=== PATIENT | female | born 1990 ===

== ENCOUNTER 2017-01-20 21:49 | Inpatient (IN) | payer BC ==
[2017-01-20] MEDS: DEXTROSE 5%-LACTATED RINGERS 1,000 ML IV SCH (22:20)
[2017-01-20] MEDS ORDERED: CITRIC ACID/SODIUM CITRATE 30 ML UNIT-DOSE CUP PO ONE (22:40)
[2017-01-20 22:42] LABS: BASOPHIL 0.4 % (0-2.0); MCH 29.1 pg (25.7-33.7); MCHC 33.4 g/dl (32.0-36.0); MEAN CELL VOLUME 87.1 fl (80-96); MEAN PLT VOLUME 9.3 fl (7.5-11.1); NEUTROPHILS 66.3 % (42.8-82.8); PLATELET COUNT 264 K/MM3 (134-434); RDW 15.9 % (11.6-15.6)
[2017-01-20 22:53] LABS: INR 0.95 (0.82-1.09); PROTHROMBIN TIME (PATIENT) 10.4 SEC (9.98-11.88)
[2017-01-20 22:56] LABS: ACTIVATED PTT 27.9 SECONDS (26.9-34.4)
[2017-01-20 23:05] LABS: ANION GAP 11 (8-16); CALCIUM 8.9 mg/dL (8.5-10.1); CO2 21 mmol/L (21-32); CREATININE 0.7 mg/dL (0.55-1.02); GLUCOSE,RANDOM 104 mg/dL (74-106)
[2017-01-20] MEDS: OXYTOCIN 20 UNITS in 0.9% NS 1,000 ML IV SCH (23:06)
[2017-01-20 23:20] LABS: HIV 1 & 2 AB NEGATIVE; HIV 1 AGp24 NEGATIVE
[2017-01-20 23:36] LABS: ARTERIAL BLOOD GAS BASE EXCESS -6.8 meq/l (-2-2); ARTERIAL BLOOD GAS HCO3 19.8 meq/L (22-26); ARTERIAL BLOOD GAS pH 7.26 (7.35-7.45); LPM/O2% 21%; PT. ON O2? no; TYPE OF O2 ROOM AIR
[2017-01-20 23:37] LABS: ARTERIAL BLD GAS O2 SATURATION 50.5 % (90-98.9); ARTERIAL BLOOD GAS PO2 26.9 mmHg (80-100)
[2017-01-20] MEDS ORDERED: IBUPROFEN 800 MG/8 ML IJ IVPB PRN ×2 (23:40→23:53)
[2017-01-20] MEDS ORDERED: ONDANSETRON 4 MG/2 ML VIAL IVPUSH PRN (23:40)
[2017-01-20 23:41] LABS: ARTERIAL BLD GAS O2 SATURATION 77.9 % (90-98.9); ARTERIAL BLOOD GAS BASE EXCESS -7.1 meq/l (-2-2); ARTERIAL BLOOD GAS HCO3 18.8 meq/L (22-26); ARTERIAL BLOOD GAS pH 7.29 (7.35-7.45)
[2017-01-20 23:42] LABS: ARTERIAL BLOOD GAS PO2 41.7 mmHg (80-100); LPM/O2% 21%; PT. ON O2? NO; TYPE OF O2 ROOM AIR
[2017-01-20] MEDS ORDERED: BENZOCAINE 20% 57 GM BOTTLE TP PRN (23:53)
[2017-01-20] MEDS ORDERED: METHYLERGONOVINE MALEATE 0.2 MG/1 ML AMP IM PRN (23:53)
[2017-01-20] MEDS ORDERED: WITCH HAZEL 50% (TUCKS) 40 PAD/JAR PAD TP PRN (23:53)
[2017-01-20] MEDS ORDERED: BENZOCAINE 28 GM HEMORRHOIDAL OINTMENT PR PRN (23:53)
[2017-01-20] MEDS ORDERED: diphenhydrAMINE HCL 25 MG CAPSULE (FP) PO PRN (23:53)
--- NOTE | 2017-01-21 | HP ---
Past Medical History - Primary Care Physician PCP:: David Lombardo - Admission Chief Complaint: 39 weeks, non reassuring herat rate .for c/s History of Present Illness: 26 yo f 39 weeks, c/o contraction q 5 min , cx 1 cm 25 vx -3 mi, had 2 irais cardia, heart BTB variability avargae , advised c/s stat History Source: Patient Limitations to Obtaining History: No Limitations - Past Medical History ...: 1 ...Para: 0 ...Term: 0 - Past Surgical History Hx Myomectomy: No Hx Transabdominal Cerclage: No - Smoking History Have you smoked in the past 12 months: No - Alcohol/Substance Use Hx Alcohol Use: No - Social History Usual Living Arrangement: Yes: With Spouse History of Recent Travel: No Home Medications - Allergies Allergies/Adverse Reactions: Allergies Allergy/AdvReac Type Severity Reaction Status Date / Time No Known Allergies Allergy Verified 01/20/17 22:25 - Home Medications Home Medications: Ambulatory Orders Vit Calc,Iron,Folic [ Vitamins] 1 each PO DAILY 01/20/17 Review of Systems - Review of Systems Constitutional: reports: No Symptoms Eyes: reports: No Symptoms HENT: reports: No Symptoms Neck: reports: No Symptoms Cardiovascular: reports: No Symptoms Respiratory: reports: No Symptoms Gastrointestinal: reports: No Symptoms Genitourinary: reports: No Symptoms Breasts: reports: No Symptoms Reported Musculoskeletal: reports: No Symptoms Integumentary: reports: No Symptoms Endocrine: reports: No Symptoms Hematology/Lymphatic: reports: No Symptoms Psychiatric: reports: No Symptoms Physical Exam - Maternity Constitutional: Yes: Well Nourished, No Distress, Calm Eyes: Yes: WNL, Conjunctiva Clear, EOM Intact HENT: Yes: WNL, Atraumatic, Normocephalic Neck: Yes: WNL, Supple, Trachea Midline Cardiovascular: Yes: WNL, Regular Rate and Rhythm Breast(s): Yes: WNL - Abdominal Exam/OB Fundal Height: 38 Number of Fetuses: Single Presentation: Vertex Contractions: Yes Regularity: Irregular Intensity: Mild/Mod Monitor Mode: External Heart Rate Location: [facility] Category: II Accelerations: Non-Uniform Decelerations: Late - Vaginal Exam/OB Vaginal Bleediing: No Speculum Exam: No Dilatation (cm): 1 Effacement (%): 25 Amniotic Membrane Status: Intact Presentation: Vertex/Position Station: -3 - Physical Exam Edema: Yes Edema: LLE: Trace, RLE: Trace Deep Tendon Reflex Grade: Normal +2 ...Motor Strength: WNL Psychiatric: Yes: WNL - Labs Lab Results: CBC, BMP 01/20/17 22:15 01/20/17 22:15 Hemorrhage Risk Assessment - Risk Factors Medium Risk Factors: Yes: None High Risk Factors: Yes: None Risk Score: 1 Risk Level: Medium Risk Problem List - Problems (1) 39 weeks gestation of Code(s): Z3A.39 - 39 WEEKS GESTATION OF (2) Non-reassuring heart rate or rhythm affecting management of mother Code(s): O76 - ABNLT IN HEART RATE AND RHYTHM COMP LABOR AND DELIVERY Assessment/Plan admit for stat c/s, nursery. anestheia. notified
[2017-01-21 00:23] VITALS: BMI 41.1
[2017-01-21] MEDS: OXYTOCIN 20 UNITS in 0.9% NS 1,000 ML IV SCH (01:10)
[2017-01-21] MEDS: CEFAZOLIN 1 GM/D5W 50 ML IVPB SCH ×2 (01:45→11:45)
[2017-01-21] MEDS ORDERED: TUBERCULIN PPD 5 TU/0.1ML SYRINGE (IN PATIENT USE ONLY) ID ONE (07:00)
--- NOTE | 2017-01-21 07:35 | PN ---
Progress Note (short form) - Note Progress Note: pod 1 doing well, has pain and cramps. previous hx of depression, suicidal attempt CBC, BMP 01/20/17 22:15 01/20/17 22:15 Last Vital Signs Temp Pulse Resp BP Pulse Ox 99.0 F 78 20 129/76 100 01/21/17 06:36 01/21/17 06:36 01/21/17 06:36 01/21/17 06:36 01/20/17 23:50 abdomen soft, no distension, no cva incision dry, clean no excess vaginal bleeding no calf tenderness plan cbc. psych consult Problem List - Problems (1) 39 weeks gestation of Code(s): Z3A.39 - 39 WEEKS GESTATION OF (2) Non-reassuring heart rate or rhythm affecting management of mother Code(s): O76 - ABNLT IN HEART RATE AND RHYTHM COMP LABOR AND DELIVERY
[2017-01-21 08:10] LABS: BASOPHIL 0.2 % (0-2.0); EOSINOPHIL 0.7 % (0-4.5); MCH 28.4 pg (25.7-33.7); MCHC 32.5 g/dl (32.0-36.0); MEAN CELL VOLUME 87.3 fl (80-96); MEAN PLT VOLUME 9.2 fl (7.5-11.1); NEUTROPHILS 68.9 % (42.8-82.8); PLATELET COUNT 228 K/MM3 (134-434); RDW 15.1 % (11.6-15.6); WHITE BLOOD COUNT 12.2 K/mm3 (4.0-10.0)
[2017-01-21] MEDS: DEXTROSE 5%-LACTATED RINGERS 1,000 ML IV SCH ×2 (09:25→17:41)
[2017-01-21] MEDS: ENOXAPARIN NA (PORCINE) 40 MG/0.4 ML DISP.SYRIN SQ SCH (09:52)
[2017-01-21] MEDS: oxyCODONE HCL 5 MG TABLET PO PRN ×2 (11:49→17:37)
--- NOTE | 2017-01-21 12:00 | PN ---
Progress Note (short form) - Note Progress Note: Anesthesia postop note. S/p stat under spinal. under spinal. pat seen and examined.VSS. No apparent post anesthesia complications. Signed off
--- NOTE | 2017-01-21 13:01 | OP ---
DATE OF OPERATION: 01/20/2017 PREOPERATIVE DIAGNOSIS: , 39 weeks, non-reassuring heart rate. POSTOPERATIVE DIAGNOSIS: , 39 weeks, non-reassuring heart rate. PROCEDURE: Primary low segment transverse section. SURGEON: Harry Lombardo MD ANESTHESIA: Spinal. ANESTHESIOLOGIST: Ray Roth MD ESTIMATED BLOOD LOSS: 500 mL. FINDING: Live baby, Apgars 8 and 9, from cord around the neck and the body x1, meconium amniotic fluid. OPERATION: The patient was taken to the operating room. Under adequate epidural anesthesia, abdomen and perineum were prepped and draped. Pfannenstiel abdominal skin incision was made. Abdominal wall was cut layer by layer, and the peritoneum was exposed and incised. Upon entering the abdominal cavity, lower uterine segment was identified, and uterovesical fold of peritoneum was established, bladder was pushed down. Then, with the lower blade of the Danyel retractor in the pelvis, a low transverse uterine incision was made. Incision extended laterally. Amniotic sac was entered. Meconium amniotic fluid was noted. Head delivered, nasopharynx was suctioned, cord around the neck x1 reduced, and then, baby was delivered without any difficulty. Cord around the body x1. Cord clamped and cut, and cord blood gasses were sent. Placenta was delivered manually. Uterine cavity was cleaned of all remaining tissue. Uterine incision was closed in 2 layers, 1st layer with 0 Biosyn continuous suture, the 2nd layer with 0 Biosyn imbricating the 1st layer. Bladder flap was closed with 0 Biosyn continuous suture. Both tubes and ovaries were checked, were normal. No active bleeding was seen. All the lap, sponge, and instrument counts were correct. Then, peritoneum was closed with 0 Biosyn continuous suture, muscles were brought together with interrupted sutures of 0 Biosyn, fascia was closed with 0 Biosyn continuous suture, subcutaneous fat with interrupted suture of 0 Biosyn, and the skin was closed with ra. Patient tolerated the procedure well, left the OR in good condition. HARRY LOMBARDO M.D. [id number]
--- NOTE | 2017-01-21 18:12 | CON.PSY ---
Psychiatry Consult Chief Complaint: Patient denies any on going suicidal or self harming or Homicidal thoughts. Very happy with the baby.and happy at home with HB> She denies any previous psy tratment. - Previous Psychiatric Treatment Outpatient: None Inpatient: None - Previous Substance Abuse Treatment Outpatient: None Inpatient: None - Current Medications Current Medications: Active Medications Benzocaine (Americaine Ointment -) 1 applic NV PRN PRN PRN Reason: PAIN Benzocaine (Americaine 20% [place] -) 1 spray TP PRN PRN PRN Reason: PAIN Bisacodyl (Dulcolax Suppository -) 10 mg RC PRN PRN PRN Reason: CONSTIPATION Citric Acid/Sodium Citrate (Bicitra Oral Solution -) 30 ml PO NOW ONE Stop: 01/20/17 22:41 Last Admin: 01/20/17 22:40 Dose: 30 ml Diphenhydramine HCl (Benadryl Injection -) 25 mg IVPUSH Q4H PRN PRN Reason: itching Last Admin: 01/21/17 01:40 Dose: 25 mg Diphenhydramine HCl (Benadryl -) 25 mg PO Q8H PRN PRN Reason: FOR ITCHING Enoxaparin Sodium (Lovenox -) 40 mg SQ DAILY [facility] Last Admin: 01/21/17 09:52 Dose: 40 mg Dextrose/Lactated Ringer's (D5-Lr -) 1,000 mls @ 125 mls/hr IV ASDIR [facility] Last Admin: 01/21/17 17:41 Dose: 125 mls/hr Ibuprofen (Caldolor Injection -) 800 mg IVPB Q6H PRN PRN Reason: PAIN Stop: 01/21/17 23:00 Ibuprofen (Motrin -) 600 mg PO Q4H PRN PRN Reason: PAIN Methylergonovine Maleate (Methergine Injection -) 0.2 mg IM Q4H PRN PRN Reason: EXCESSIVE BLEEDING Oxycodone HCl (Roxicodone -) 5 mg PO Q4H PRN PRN Reason: PAIN LEVEL 1-5 Last Admin: 01/21/17 11:49 Dose: 5 mg Oxycodone HCl (Roxicodone -) 10 mg PO Q4H PRN PRN Reason: PAIN LEVEL 6-10 Last Admin: 01/21/17 17:37 Dose: 10 mg Senna/Docusate Sodium (Pericolace -) 1 tablet PO HS PRN PRN Reason: CONSTIPATION Simethicone (Mylicon -) 80 mg PO Q4H PRN PRN Reason: GAS Witch Shavon/Glycerin (Tucks Pads -) 1 pad TP PRN PRN PRN Reason: PAIN - Allergies Allergies: Allergies Allergy/AdvReac Type Severity Reaction Status Date / Time No Known Allergies Allergy Verified 01/20/17 22:25 - Current Living Status Usual Living Arrangement: With Spouse - Current Mental Status Evaluation Appearance: Well Groomed Attitude: Cooperative - Affect Affect: Full Range Appropriateness: Appropriate to Content - Mood Mood: Euthymic - Speech/Language Expressive: Coherent - Psychomotor Activity Psychomotor Activity: Normal - Thought Process Thought Process: Intact - Thought Content Hallucinations: Absent Delusions: Absent - Self Perception Self Perception: No Impairment - Cognition Attention: Alert Orientation: Time Memory, Immediate Recall: Intact Memory, Short Term: 3/3 Memory, Remote with Promptin/3 - Concentration Serial Sevens Intact: No Simple Calculations Intact: No - Abstraction Proverb Interpretation: Intact Judgement: Intact - Insight Insight: Intact - Impulse Control Impulse Control: Good Control - Suicidal Ideation Suicidal Ideation: No - Homicidal Ideation Homicidal Ideation: No Assessment/Plan No Psych meds needed. D/C home with hb when medically clear.
[2017-01-21] MEDS ORDERED: BISACODYL 10 MG SUPP.RECT RC PRN (23:53)
[2017-01-22] MEDS: oxyCODONE HCL 5 MG TABLET PO PRN ×4 (00:16→22:08)
[2017-01-22] MEDS: SIMETHICONE 80 MG TAB.CHEW (FP) PO PRN ×3 (00:16→22:07)
--- NOTE | 2017-01-22 01:30 | PN ---
Post Progress Note - Subjective Subjective: Patient without acute complaints. Reports tolerating oral intake without nausea or vomiting. Ambulating without dizziness. Voiding without issue. Denies fevers or chills. Pain well controlled with oral pain medication. without difficulty. Post Day: 2 Type of Delivery: Primary C/S Vital Signs: Vital Signs Temperature 98.1 F 01/21/17 21:17 Pulse Rate 75 01/21/17 21:17 Respiratory Rate 20 01/21/17 22:00 Blood Pressure 123/68 01/21/17 21:17 O2 Sat by Pulse Oximetry (%) 100 01/20/17 23:50 Breast Exam: Yes: Engorged Uterus: Yes: Fundus Firm, Fundus below umbilicus Incision: Yes: Almas intact. No: Redness, Oozing Abdomen/GI: Yes: Abdomen soft, Tender (incisional) Lochia: Yes: Serosa Lochia, amount: Small Extremities: Yes: Calves non-tender, Edema (+1) Activity: Ambulating - Labs Labs: CBC WBC 12.2 K/mm3 (4.0-10.0) H 01/21/17 06:00 RBC 3.78 M/mm3 (3.60-5.2) 01/21/17 06:00 Hgb 10.7 GM/dL (10.7-15.3) 01/21/17 06:00 Hct 33.0 % (32.4-45.2) 01/21/17 06:00 MCV 87.3 fl (80-96) 01/21/17 06:00 MCH 28.4 pg (25.7-33.7) 01/21/17 06:00 MCHC 32.5 g/dl (32.0-36.0) 01/21/17 06:00 RDW 15.1 % (11.6-15.6) 01/21/17 06:00 Plt Count 228 K/MM3 (134-434) 01/21/17 06:00 MPV 9.2 fl (7.5-11.1) 01/21/17 06:00 Neutrophils % 68.9 % (42.8-82.8) 01/21/17 06:00 Lymphocytes % 19.0 % (8-40) 01/21/17 06:00 Monocytes % 11.2 % (3.8-10.2) H 01/21/17 06:00 Eosinophils % 0.7 % (0-4.5) 01/21/17 06:00 Basophils % 0.2 % (0-2.0) 01/21/17 06:00 Assessment/Plan 26 yo POD # 2 s/p 1 CD, afebrile, vital signs stable, doing well 1. Continue routine postoperative care. 2. Encourage ambulation and incentive spirometer use 3. Continue oral pain medication 4. Anticipate discharge home postoperative day #4
[2017-01-22] MEDS: ENOXAPARIN NA (PORCINE) 40 MG/0.4 ML DISP.SYRIN SQ SCH (09:48)
[2017-01-22] MEDS: IBUPROFEN 600 MG TABLET (FP) PO PRN (14:19)
[2017-01-22] MEDS: SENNOSIDES/DOCUSATE COMBO (SENNA PLUS) TABLET (UD) PO PRN (22:07)
[2017-01-23] MEDS: IBUPROFEN 600 MG TABLET (FP) PO PRN ×3 (09:51→22:57)
[2017-01-23] MEDS: ENOXAPARIN NA (PORCINE) 40 MG/0.4 ML DISP.SYRIN SQ SCH (09:51)
[2017-01-23] MEDS: oxyCODONE HCL 5 MG TABLET PO PRN ×3 (09:52→22:56)
--- NOTE | 2017-01-23 10:34 | PN ---
Post Progress Note - Subjective Subjective: Patient without acute complaints. Reports tolerating oral intake without nausea or vomiting. Ambulating without dizziness. Denies fevers or chills. Pain well controlled with oral pain medication. without difficulty. Passing flatus. Post Day: 3 Type of Delivery: Primary C/S Vital Signs: Vital Signs Temperature 98.7 F 01/23/17 08:50 Pulse Rate 98 H 01/23/17 08:50 Respiratory Rate 20 01/23/17 08:50 Blood Pressure 123/86 01/23/17 08:50 O2 Sat by Pulse Oximetry (%) 100 01/20/17 23:50 Uterus: Yes: Fundus Firm, Fundus below umbilicus Incision: Yes: Almas intact. No: Redness, Oozing Abdomen/GI: Yes: Abdomen soft, Tender (incisional), Passing flatus, Tolerating PO Lochia: Yes: Serosa Lochia, amount: Small Extremities: Yes: Calves non-tender, Edema (trace) Activity: Ambulating - Labs Labs: CBC WBC 12.2 K/mm3 (4.0-10.0) H 01/21/17 06:00 RBC 3.78 M/mm3 (3.60-5.2) 01/21/17 06:00 Hgb 10.7 GM/dL (10.7-15.3) 01/21/17 06:00 Hct 33.0 % (32.4-45.2) 01/21/17 06:00 MCV 87.3 fl (80-96) 01/21/17 06:00 MCH 28.4 pg (25.7-33.7) 01/21/17 06:00 MCHC 32.5 g/dl (32.0-36.0) 01/21/17 06:00 RDW 15.1 % (11.6-15.6) 01/21/17 06:00 Plt Count 228 K/MM3 (134-434) 01/21/17 06:00 MPV 9.2 fl (7.5-11.1) 01/21/17 06:00 Neutrophils % 68.9 % (42.8-82.8) 01/21/17 06:00 Lymphocytes % 19.0 % (8-40) 01/21/17 06:00 Monocytes % 11.2 % (3.8-10.2) H 01/21/17 06:00 Eosinophils % 0.7 % (0-4.5) 01/21/17 06:00 Basophils % 0.2 % (0-2.0) 01/21/17 06:00 Assessment/Plan 26 yo POD # 2 s/p 1 CD, afebrile, vital signs stable, doing well 1. Continue routine postoperative care. 2. Encourage ambulation and incentive spirometer use 3. Continue oral pain medication - encouraged to ask for pain medication PRN 4. Anticipate discharge home postoperative day #4
[2017-01-23 11:43] LABS: BASOPHIL 0.5 % (0-2.0); EOSINOPHIL 0.9 % (0-4.5); MCH 28.4 pg (25.7-33.7); MCHC 32.1 g/dl (32.0-36.0); MEAN CELL VOLUME 88.6 fl (80-96); MEAN PLT VOLUME 8.7 fl (7.5-11.1); NEUTROPHILS 72.3 % (42.8-82.8); PLATELET COUNT 229 K/MM3 (134-434); RDW 15.8 % (11.6-15.6)
[2017-01-23] MEDS: SIMETHICONE 80 MG TAB.CHEW (FP) PO PRN ×2 (15:28→22:56)
[2017-01-23] MEDS: SENNOSIDES/DOCUSATE COMBO (SENNA PLUS) TABLET (UD) PO PRN (22:56)
[2017-01-24] MEDS: IBUPROFEN 600 MG TABLET (FP) PO PRN (05:44)
[2017-01-24] MEDS: SIMETHICONE 80 MG TAB.CHEW (FP) PO PRN (05:44)
[2017-01-24] MEDS: ENOXAPARIN NA (PORCINE) 40 MG/0.4 ML DISP.SYRIN SQ SCH (09:37)
--- NOTE | 2017-01-24 10:24 | PN ---
Post Progress Note - Subjective Subjective: Patient without acute complaints. Reports tolerating oral intake without nausea or vomiting. Ambulating without dizziness. Denies fevers or chills. Pain well controlled with oral pain medication. without difficulty. Passing flatus. Post Day: 4 Type of Delivery: Primary C/S Vital Signs: Vital Signs Temperature 98.0 F 01/23/17 20:36 Pulse Rate 81 01/23/17 20:36 Respiratory Rate 20 01/23/17 20:36 Blood Pressure 117/66 01/23/17 20:36 O2 Sat by Pulse Oximetry (%) 100 01/20/17 23:50 Breast Exam: Yes: Engorged Uterus: Yes: Fundus Firm, Fundus below umbilicus Incision: Yes: Almas intact. No: Redness, Oozing Abdomen/GI: Yes: Abdomen soft, Tender (mild incisional), Passing flatus, Tolerating PO Lochia: Yes: Serosa Lochia, amount: Small Extremities: Yes: Calves non-tender, Edema (+1) Activity: Ambulating - Labs Labs: CBC WBC 12.0 K/mm3 (4.0-10.0) H 01/23/17 06:00 RBC 3.64 M/mm3 (3.60-5.2) 01/23/17 06:00 Hgb 10.3 GM/dL (10.7-15.3) L 01/23/17 06:00 Hct 32.2 % (32.4-45.2) L 01/23/17 06:00 MCV 88.6 fl (80-96) 01/23/17 06:00 MCH 28.4 pg (25.7-33.7) 01/23/17 06:00 MCHC 32.1 g/dl (32.0-36.0) 01/23/17 06:00 RDW 15.8 % (11.6-15.6) H 01/23/17 06:00 Plt Count 229 K/MM3 (134-434) 01/23/17 06:00 MPV 8.7 fl (7.5-11.1) 01/23/17 06:00 Neutrophils % 72.3 % (42.8-82.8) 01/23/17 06:00 Lymphocytes % 17.0 % (8-40) 01/23/17 06:00 Monocytes % 9.3 % (3.8-10.2) 01/23/17 06:00 Eosinophils % 0.9 % (0-4.5) 01/23/17 06:00 Basophils % 0.5 % (0-2.0) 01/23/17 06:00 Assessment/Plan 26 yo POD # 4 s/p 1 CD, afebrile, vital signs stable, doing well 1. Patient stable for discharge home today. 2. Patient encouraged to contact MD for: - Severe pain not controlled by oral pain medication - Fevers or chills - Nausea or vomiting, intolerance of oral intake - Incision redness, tenderness or discharge 3. Patient to follow up in office this or Tuesday for staple removal, 1- 2 weeks for incision check, 4-6 weeks for visit
[2017-01-24 10:56] VITALS: BP 110/68; PULSE 74; TEMP 98.8
--- NOTE | 2017-01-24 15:26 | PATH ---
Surgical Pathology Report Patient Name: JAQUAN MCFARLANE [facility]. Rec. 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 Specimen(s) Received PLACENTA Clinical History , 39.3 wks, IAB x1 Fibrous, history of self harm, ob referred to psyche, patient's noncompliant Final Diagnosis PLACENTA, DELIVERY: FOCALLY DISRUPTED THIRD TRIMESTER PLACENTA WITH INTERVILLOUS FIBRIN DEPOSITION, AREAS OF CALCIFICATION, THREE VESSEL UMBILICAL CORD AND ACUTE CHORIOAMNIONITIS AND MECONIUM HISTIOCYTOSIS OF PLACENTAL MEMBRANES. Electronically Signed Brandon Lanier M.D. Gross Description The specimen is received fresh labeled placenta and is a 490 gram, 17.0 x 15.0 x 2.3 cm. placenta with attached membranes and umbilical cord. The attached membranes are hayes green meconium stained, thickened and insert marginally. The umbilical cord measures 18 cm. in length and averages 1.1 cm. in diameter. The cord inserts eccentrically, 3.5 cm. to the nearest margin. No true knots or strictures are identified. Cut surface of the umbilical cord reveals 3 vessels. The surface is louis-green meconium stained with fibrin deposition and appropriate caliber vessels. The maternal surface is red-brown with focal defects. Sectioning reveals red-brown, spongy parenchyma with a focal hayes-pink firm lesion, approximately 2.5 cm in greatest dimension, Spool Sorter sections are submitted in three cassettes as follows: 1- membrane rolls and umbilical cord; 2- lesion, 3- full thickness sections of placenta. AF/01/21/2017 final/01/21/2017
--- NOTE | 2017-01-25 12:01 | DS ---
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 Vital Signs: Vital Signs Temperature 98.8 F 01/24/17 10:00 Pulse Rate 74 01/24/17 10:00 Respiratory Rate 20 01/24/17 10:00 Blood Pressure 110/68 01/24/17 10:00 O2 Sat by Pulse Oximetry (%) 100 01/20/17 23:50 Constitutional: Yes: Well Nourished, No Distress, Calm Eyes: Yes: WNL, Conjunctiva Clear, EOM Intact HENT: Yes: WNL, Atraumatic, Normocephalic Neck: Yes: WNL, Supple, Trachea Midline Cardiovascular: Yes: WNL, Regular Rate and Rhythm Respiratory: Yes: WNL, Regular, CTA Bilaterally Gastrointestinal: Yes: WNL ...Rectal Exam: Yes: WNL Renal/: Yes: WNL Adnexa: Not Palpable: Right ....Post : Yes: Uterus firm, Uterus non-tender, Slight lochia rubra Breast(s): Yes: WNL Musculoskeletal: Yes: WNL Extremities: Yes: WNL Edema: LLE: Trace, RLE: Trace Integumentary: Yes: WNL Neurological: Yes: WNL, Alert, Oriented ...Motor Strength: WNL Psychiatric: Yes: WNL, Alert, Oriented Labs: CBC, BMP 01/23/17 06:00 01/20/17 22:15 Delivery - Delivery Section: Primary, Low Flap Transverse (mec> a.f no complication) Type of Anesthesia: Spinal Episiotomy/Laceration: None EBL (cc): 500 Delivery, Single - Stages of Labor Date 1st Stage Initiatied: 01/20/17 Time 1st Stage Initiated: 17:30 Date of Delivery: 01/20/17 Time of Delivery: 23:05 Time Placenta Delivered: 23:06 Placenta: Yes: Expressed - Condition of Admissions Officer/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 You may walk unlimited adilia of and climb stairs. You may resume driving the car when you feel safe and comfortable behind the wheel. No sexual activity as instructed. Wound care If you have a bandage, leave it on, and keep dry for 48-72 hours. After that time discard the outer bandage. If they are tapes on the skin under the out of bandage leave them in place. They will peel off in the next 7 to 10 days. Do Not Peel them off. You may shower the day after surgery. If there are tapes present on the skin, you may shower over them. Diet There are no dietary restrictions. Eat healthy, high-fiber foods. Drink 6 to 8 glasses of liquid each day. This will assist in keeping your bowels are regular. Pain management You may take Tylenol or acetaminophen or Ibuprofen (for example, Motrin, Advil etc.) from my pain prescription medication is ordered should be taken as prescribed for moderate to severe pain. Call MD for any of the following: Severe pain not relieved by medication Fever of 101 or higher Excessive bleeding or drainage on dressing Inability to urinate Disposition: HOME - Home Medications Comprehensive Discharge Medication List: Ambulatory Orders Vit Calc,Iron,Folic [ Vitamins] 1 each PO DAILY 01/20/17 Ibuprofen [Motrin -] 600 mg PO QID #60 tablet 01/24/17 Oxycodone HCl/Acetaminophen [Percocet 5-325 mg Tablet -] 1 - 2 tab PO Q6H #20 tab MDD 6 01/24/17
== END 2017-01-24 12:50 | disposition home or self-care (01) | DRG 765 ==
LOC: JDEL 21:49 → JLDR 22:30 → J3W 01-21 02:10
PROVIDERS: ADMIT Obstetrics & Gynecology; ATTEND Obstetrics & Gynecology
PROC: 10D00Z1 Extraction of Products of Conception, Low, Open Approach (ICD-10-PCS; principal; 2017-01-20)
DX: O76 Abnormality in fetal heart rate and rhythm complicating labor and delivery (principal); O41.1230 Chorioamnionitis, third trimester, not applicable or unspecified; Z3A.39 39 weeks gestation of pregnancy; Z37.0 Single live birth
CPT/HCPCS: 36415; 36600; 59025; 80048; 82803; 85025; 85610; 85730; 86593; 86850; 86900; 86901; 87389; 88307-TC